=== PATIENT | male | born 1965 | race Caucasian/White ===

== ENCOUNTER 2023-11-11 18:28 | Emergency (ER) | payer OTHER ==
[~2023-11-11] VITALS: Ht 170.2 cm; Wt 72.6 kg
[2023-11-11 19:11] VITALS: BP_SYST 140; PULSE 82; RESP 18; TEMP 97.5; O2SAT 98
[2023-11-11 22:48] VITALS: BP_SYST 132; PULSE 70; RESP 18; TEMP 98.2; O2SAT 97
== END 2023-11-11 22:44 | disposition left against medical advice (07) ==
LOC: SED 18:28
DX: H33.21 Serous retinal detachment, right eye (principal); H53.8 Other visual disturbances
CPT/HCPCS: 99281